=== PATIENT | female | born 1985 | race Caucasian/White ===

== ENCOUNTER 2019-05-31 07:12 | Outpatient (CLI) | payer BC, SELFPAY ==
--- NOTE | 2019-05-31 14:19 | PFTS_ITS ---
Date of Study:05/31/19 Date of Dictation: 05/31/19 MECHANICS: Forced vital capacity (FVC) is normal. Forced expiratory volume in one second (FEV1) is normal. FEV1/FVC is normal. FLOW VOLUME LOOP: Normal. LUNG VOLUMES: Total lung capacity (TLC) is normal. Residual volume (RV) is mildly elevated. DIFFUSING CAPACITY FOR CARBON MONOXIDE: Normal. INTERPRETATION: The pulmonary function tests are normal. There is no significant postbronchodilator response. Lung volumes are normal with minimally elevated residual volume. Gas exchange (DLCO) is normal. MTDD
== END 2019-05-31 07:13 | disposition home or self-care (01) ==
PROVIDERS: Family Provider Family Medicine; PCP Family Medicine; Visit Provider Internal Medicine Critical Care Medicine
DX: D86.9 Sarcoidosis, unspecified (principal)
CPT/HCPCS: 94060; 94726; 94729; J7611

== ENCOUNTER 2019-06-22 15:41 | Outpatient (RCR) | payer BC, SELFPAY | END 2019-07-13 23:59 | disposition home or self-care (01) | LOC: SPT 15:41 | PROVIDERS: Family Provider Family Medicine; PCP Family Medicine; Referring Provider Neurological Surgery; Visit Provider Neurological Surgery | DX: M54.12 Radiculopathy, cervical region (principal) | CPT/HCPCS: 97110; 97161 ==

== ENCOUNTER 2019-07-14 06:00 | Outpatient (RCR) | payer BC, SELFPAY | END 2019-08-12 23:59 | disposition home or self-care (01) | LOC: SPT 06:00 | PROVIDERS: Family Provider Family Medicine; PCP Family Medicine; Referring Provider Neurological Surgery; Visit Provider Neurological Surgery | DX: M54.12 Radiculopathy, cervical region (principal) | CPT/HCPCS: 97110 ==

== ENCOUNTER 2019-08-13 06:00 | Outpatient (RCR) | payer BC, SELFPAY | END 2019-09-12 23:59 | disposition home or self-care (01) | LOC: SPT 06:00 | PROVIDERS: PCP Family Medicine; Referring Provider Neurological Surgery; Visit Provider Neurological Surgery | DX: M54.12 Radiculopathy, cervical region (principal) | CPT/HCPCS: 97110 ==

== ENCOUNTER 2019-10-18 12:01 | Outpatient (CLI) | payer BC, SELFPAY ==
--- NOTE | 2019-10-18 12:13 | XRR_ITS ---
PROCEDURE INFORMATION: Exam: XR Chest, 2 Views Exam date and time: 10/18/2019 12:38 PM Age: 34 years old Clinical indication: Condition or disease; Lung condition and disease; Other: Sarcoidosis TECHNIQUE: Imaging protocol: XR of the chest Views: 2 views. COMPARISON: CT chest w con* [id number] 02/26/2019 9:59 AM FINDINGS: Lungs: Hyperinflation and interstitial prominence. Pleural space: No pleural effusion. Heart/Mediastinum: No cardiomegaly. Bones/joints: Marginal osteophytes. XR/XR chest 2V* [id number] IMPRESSION: Hyperinflation and interstitial prominence.
== END 2019-10-18 12:02 | disposition home or self-care (01) ==
LOC: RAD 12:06
PROVIDERS: PCP Family Medicine; Visit Provider Internal Medicine Critical Care Medicine
DX: D86.9 Sarcoidosis, unspecified (principal)
CPT/HCPCS: 71046

== ENCOUNTER 2020-05-01 12:48 | Outpatient (CLI) | payer BC, SELFPAY ==
--- NOTE | 2020-05-01 12:59 | XRR_ITS ---
PROCEDURE INFORMATION: Exam: XR Chest, 2 Views Exam date and time: 05/01/2020 12:59 PM Age: 35 years old Clinical indication: Chest pain; Type not specified; Patient HX: Sarcoidosis TECHNIQUE: Imaging protocol: XR of the chest Views: 2 views. COMPARISON: CR XR chest 2V* [id number] 10/18/2019 12:36 PM FINDINGS: Lungs: Unremarkable. No consolidation. Pleural space: Unremarkable. No pleural effusion. No pneumothorax. Heart/Mediastinum: Unremarkable. No cardiomegaly. Bones/joints: Metallic surgical hardware seen in the cervical spine XR/XR chest 2V* [id number] IMPRESSION: 1. No acute findings. 2. Metallic surgical hardware cervical spine.
== END 2020-05-01 12:49 | disposition home or self-care (01) ==
PROVIDERS: PCP Family Medicine; Visit Provider Internal Medicine Critical Care Medicine
DX: R07.9 Chest pain, unspecified (principal)
CPT/HCPCS: 71046

== ENCOUNTER → 2020-05-04 16:45 | Outpatient (BNVA) | payer BC, SELFPAY | PROVIDERS: PCP Family Medicine; Visit Provider Internal Medicine Critical Care Medicine | DX: Z20.822 Contact with and (suspected) exposure to COVID-19 (principal) | CPT/HCPCS: 87635 ==

== ENCOUNTER 2020-05-08 07:05 | Outpatient (CLI) | payer BC, SELFPAY ==
--- NOTE | 2020-05-08 09:03 | PFTS_ITS ---
Date of Study:05/08/20 Date of Dictation: MECHANICS: Forced vital capacity (FVC) is . Forced expiratory volume in one second (FEV1) is . FEV1/FVC is . FLOW VOLUME LOOP: . LUNG VOLUMES: Total lung capacity (TLC) is . Residual volume (RV) is . DIFFUSING CAPACITY FOR CARBON MONOXIDE: . INTERPRETATION: The pulmonary function tests are . mechanics and lung volumes. Gas exchange (DLCO) is . MTDD
== END 2020-05-08 07:06 | disposition home or self-care (01) ==
LOC: RT 07:12
PROVIDERS: PCP Family Medicine; Visit Provider Internal Medicine Critical Care Medicine
DX: D86.9 Sarcoidosis, unspecified (principal)
CPT/HCPCS: J7611

== ENCOUNTER → 2020-05-11 16:28 | Outpatient (BNVA) | payer BC, SELFPAY | PROVIDERS: PCP Family Medicine; Visit Provider Internal Medicine Critical Care Medicine | DX: Z20.822 Contact with and (suspected) exposure to COVID-19 (principal) | CPT/HCPCS: 87635 ==

== ENCOUNTER 2020-05-15 06:55 | Outpatient (CLI) | payer BC, SELFPAY ==
--- NOTE | 2020-05-15 09:53 | PFTS_ITS ---
Date of Study:05/15/20 Date of Dictation: 05/15/2020 MECHANICS: Forced vital capacity (FVC) is normal. Forced expiratory volume in one second (FEV1) is reduced 70%. FEV1/FVC is reduced. FLOW VOLUME LOOP: Normal . LUNG VOLUMES: Not measured DIFFUSING CAPACITY FOR CARBON MONOXIDE: . INTERPRETATION: The spirometry suggestive of mild airway obstruction. Normal gas transfer. Please correlate clinically. MTDD
== END 2020-05-15 06:56 | disposition home or self-care (01) ==
LOC: RT 06:59
PROVIDERS: PCP Family Medicine; Visit Provider Internal Medicine Critical Care Medicine
DX: D86.9 Sarcoidosis, unspecified (principal)
CPT/HCPCS: 94010; 94729

== ENCOUNTER → 2021-04-06 11:13 | Outpatient (BNVA) | payer BC, SELFPAY | PROVIDERS: PCP Family Medicine; Visit Provider Family Medicine | DX: M79.672 Pain in left foot (principal); M79.89 Other specified soft tissue disorders | CPT/HCPCS: 73630 ==

== ENCOUNTER → 2021-04-11 14:59 | Outpatient (BNVA) | payer BC, SELFPAY | PROVIDERS: PCP Family Medicine; Visit Provider Podiatrist Foot & Ankle Surgery | DX: M79.672 Pain in left foot (principal) | CPT/HCPCS: 73630 ==

== ENCOUNTER 2021-04-11 15:47 | Outpatient (CLI) | payer BC, SELFPAY | END 2021-04-11 15:48 | disposition home or self-care (01) | LOC: SPT 15:48 | PROVIDERS: PCP Family Medicine; Visit Provider Podiatrist Foot & Ankle Surgery | DX: Z46.89 Encounter for fitting and adjustment of other specified devices (principal); M79.672 Pain in left foot | CPT/HCPCS: 97760; L4361 ==

== ENCOUNTER 2021-07-02 06:00 | Outpatient (RCR) | payer BC, SELFPAY | END 2021-07-12 23:59 | disposition home or self-care (01) | LOC: SPT 06:00 | PROVIDERS: PCP Family Medicine; Referring Provider Physician Assistant Medical; Visit Provider Physician Assistant Medical | DX: M54.2 Cervicalgia (principal) | CPT/HCPCS: 97110; 97140; 97161; G0283 ==

== ENCOUNTER 2021-07-13 06:00 | Outpatient (RCR) | payer BC, SELFPAY | END 2021-08-06 12:12 | disposition home or self-care (01) | LOC: SPT 06:00 | PROVIDERS: PCP Family Medicine; Referring Provider Physician Assistant Medical; Visit Provider Physician Assistant Medical | DX: M54.2 Cervicalgia (principal) | CPT/HCPCS: 97110; 97140; G0283 ==

== ENCOUNTER → 2021-08-21 08:30 | Outpatient (BNVA) | payer BC, SELFPAY | PROVIDERS: PCP Family Medicine; Visit Provider Podiatrist Foot & Ankle Surgery | DX: M79.672 Pain in left foot (principal) | CPT/HCPCS: 73630 ==

== ENCOUNTER 2021-10-01 06:56 | Outpatient (CLI) | payer BC, SELFPAY ==
--- NOTE | 2021-10-01 07:15 | MR_ITS ---
WS: [id number] MRI LEFT FOOT without CONTRAST. COMPARISON: Radiograph 08/21/2021 Multiplanar, multisequence imaging is performed without contrast. No marrow edema or fractures are identified. Increased T2 signal in the dorsal portion of the Lisfran c ligament. There is increased T2 signal extending from the lateral margin of the first cuneiform to the medial margin of the second metatarsal. There is also increased T2 signal within the remaining in tact dorsal ligament. This is consistent with a partial tear. The plantar surface of the ligament is intact. There is no widening between the first and second metatarsals. There is additional soft tissu e injury in the midfoot. There is edema surrounding the proximal metatarsals and between the cuneifor ms. MR/MR foot LT wo con* [id number] IMPRESSION: 1. Partial tear involving the dorsal surface of the Lisfranc ligament. The justin ntar portion of the ligament is intact. 2. Additional soft tissue injury with edema surrounding the cuneiforms and the proximal metatarsals but no fracture identified.
== END 2021-10-01 06:57 | disposition home or self-care (01) ==
LOC: RAD 06:57
PROVIDERS: PCP Family Medicine; Visit Provider Podiatrist Foot & Ankle Surgery
DX: S90.32XA Contusion of left foot, initial encounter (principal); M79.672 Pain in left foot; X58.XXXA Exposure to other specified factors, initial encounter
CPT/HCPCS: 73718

== ENCOUNTER → 2021-11-29 14:17 | Outpatient (BNVA) | payer BC, SELFPAY | PROVIDERS: PCP Family Medicine; Visit Provider Podiatrist Foot & Ankle Surgery | DX: M79.672 Pain in left foot (principal) | CPT/HCPCS: 73630 ==

== ENCOUNTER 2022-02-22 13:50 | Emergency (ER) | payer BC, SELFPAY ==
[2022-02-22 13:53] VITALS: BP 127/84; PULSE 121; RESP 20; TEMP 36.4; O2SAT 99; BMI 30.7
--- NOTE | 2022-02-22 13:57 | ECG_ITS ---
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 Measurements Intervals [place] Rate: 107 P: 55 ID: [id number] QRS: 56 QRSD: 76 T: 50 QT: 303 QTc: 405 Interpretive Statements SINUS TACHYCARDIA ABNORMAL RHYTHM ECG Compared to ECG 10/12/2015 10:54:43 Indeterminate axis no longer present Electronically Signed On 02-23-2022 14:56:12 INSTRUCTIONAL DESIGNER by Tara Johnson M.D. [id number]
[2022-02-22 18:09] LABS: Basophils % 0.1 %; Eosinophils # 0.2 10^3/uL (0.0-0.8); Eosinophils % 1.4 %; Hematocrit 40.7 % (37.0-47.0); Hemoglobin 13.5 g/dL (11.5-15.3); Lymphocytes # 1.3 10^3/uL (0.8-4.8); Lymphocytes % 9.1 %; Mean Corpuscular HGB Conc 33.2 g/dL (30.0-36.0); Mean Corpuscular Hemoglobin 28.3 pg (28.0-34.0); Mean Corpuscular Volume 85.3 fl (81-99); Mean Platelet Volume 9.6 fL (7.4-10.4); Monocytes # 0.7 10^3/uL (0.2-0.9); Monocytes % 4.6 %; Neutrophils # 11.83 10^3/uL (1.8-7.7); Neutrophils % 84.3 %; Nucleated Red Blood Cells % 0 %; Platelet Count 331 10^3/cmm (130-400); Red Blood Count 4.77 10^6/uL (4.1-5.3); Red Cell Distribution Width 13.6 % (12.1-15.1)
[2022-02-22 18:47] LABS: Alanine Aminotransferase 18 U/L (0-33); Albumin Level 4.6 g/dL (3.5-5.2); Alkaline Phosphatase 116 U/L (35-105); Anion Gap 15.7 (5-19); Aspartate Amino Transferase 15 U/L (0-32); Blood Urea Nitrogen 9 mg/dL (6-20); Calcium 9.5 mg/dL (8.5-10.5); Carbon Dioxide 24 mmol/L (22-29); Chloride 100 mmol/L (98-107); Globulin 3.8 g/dL (1.3-4.6); Glomerular Filtration Rate 95.8 mL/min (90-130); Glucose 99 mg/dL (65-115); Osmolality Calculated 281 mOsm/kg (285-295); Potassium 3.7 mmol/L (3.5-5.1); Sodium 136 mmol/L (136-145); Thyroid Stimulating Hormone 1.46 uIU/mL (0.27-4.20); Total Bilirubin 0.6 mg/dL (0.15-1.2); Total Protein 8.4 g/dL (6.6-8.7)
[2022-02-22 19:26] LABS: HCG Qualitative Urine. Negative (Negative)
[2022-02-22 20:06] LABS: D Dimer 0.76 ug/mIFEU (0-0.59)
--- NOTE | 2022-02-22 20:15 | CTR_ITS ---
PROCEDURE INFORMATION: Exam: CTA Chest With Contrast Exam date and time: 02/22/2022 8:24 PM Age: 36 years old Clinical indication: Pain; Chest pressure; Additional info: Chest pain TECHNIQUE: Imaging protocol: Computed tomographic angiography of the chest with contrast. 3D rendering (Not supervised by radiologist): MIP and/or 3D reconstructed images were created by the technologist. Radiation optimization: All CT scans at this facility use at least one of these dose optimization techniques: automated exposure control; mA and/or kV adjustment per patient size (includes targeted exams where dose is matched to clinical indication); or iterative reconstruction. Contrast material: OMNIPAQUE 350; Contrast volume: 100 ml; Contrast route: INTRAVENOUS (IV); COMPARISON: CT chest w con* [id number] 02/26/2019 9:59 AM RADIATION DOSE METRICS: Total DLP (mGy-cm): 391.59 FINDINGS: Pulmonary arteries: Normal. No pulmonary emboli. Aorta: Unremarkable. No aortic aneurysm. No aortic dissection. Lungs: Bilateral dependent atelectasis. Right lower lobe demonstrates a cluster of pulmonary nodules measuring up to 8.3 mm medially. Left lower lobe 5.4 mm nodule is also seen. Pleural spaces: Unremarkable. No pneumothorax. No pleural effusion. Heart: Unremarkable. No cardiomegaly. No pericardial effusion. Lymph nodes: Unremarkable. No enlarged lymph nodes. Bones/joints: Unremarkable. No acute fracture. Soft tissues: Unremarkable. CT/CT angio chest PE protcl [id number] IMPRESSION: 1. Negative for pulmonary embolus. 2. Bilateral dependent atelectasis. 3. Right lower lobe demonstrates a cluster of pulmonary nodules measuring up to 8.3 mm medially. Left lower lobe 5.4 mm nodule is also seen. Highly suspicious nodule(s). Consider non-emergent PET/CT, or tissue sampling.(Reference: Rober) REFERENCES: Rober Hogue, et al. Guidelines for Management of Incidental Pulmonary Nodules Detected on CT Images: From the Fleischner Society 2017. Radiology. 2017;284(1):228-243.
--- NOTE | 2022-02-22 20:15 | ED_ITS ---
HPI - General Adult General: Chief complaint: General Medical Stated complaint: abnormal heartrate Time Seen by Provider: 02/22/22 19:40 Source: patient History of Present Illness: 36-year-old female presenting with mild chest discomfort, palpitations, and shortness of breath. She has had the symptoms for a few days. She was diagnosed with strep throat last week, and has been on antibiotics for this. She denies fever currently. She does feel ill otherwise. She notes that her throat has improved to some degree. Onset (ago): day(s) Location: chest Radiation: non-radiation Quality: other (pressure) Pain Consistency: constant Relieving factors: none Exacerbating factors: other Associated symptoms: Reports chest pain, cough, dyspnea, fevers/chills, headache(s), nausea, palpitations, short of breath and weakness (Generalized); Deny confusion, diaphoresis or vomiting Review of Systems Const: Denies: diaphoresis ENMT: Denies: throat pain Card: Reports: chest pain and palpitations Resp: Reports: dyspnea and non-productive cough GI: Reports: nausea; Denies: vomiting Musc: Denies: back pain Neuro: Reports: headache(s); Denies: confusion PFSH ED PFSH: Medical History Ankle arthritis LA (lymphadenopathy) Sarcoidosis Surgical History H/O tubal ligation History of bronchoscopy Family History Denies family history of Diabetes CAD (coronary artery disease) Hyperlipidemia Chronic kidney disease (CKD) Anesthesia complication Family history of premature coronary artery disease Lung disease Cancer Hypertension Stroke Social History Smoking and tobacco status: former smoker Second hand smoke exposure: No Smoking risk assessment/counseling performed?: No Alcohol intake: never Desire information about alcohol rehabilitation?: No Counseling given: No Desire information about substance/drug rehabilitation?: No Counseling given: No Lives independently: Yes Household members: spouse Marital status: Number of children: 2 Current occupational status: employed History of recent travel: No Current gender identity: Female Female Reproductive History: Para: 2 Physical Exam Const: GENERAL APPEARANCE: cooperative and ill appearing (Mildly); not frail appearing HENMT: COMMON NORMALS: normocephalic, atraumatic and Normal external nose p resent HEAD & SCALP: normocephalic and atraumatic FACE & SINUS: normal facial exam and face symmetric NOSE: Normal external nose present Eye: COMMON NORMALS: Equal, round and reactive pupils present and EOMs intact bilaterally PUPIL: Yes Equal, round and reactive pupils present Neck/C-Spine: GENERAL: Yes trachea midline Chest: CHEST: Yes Symmetrical chest wall rise Resp: COMMON NORMALS: normal respiratory effort, No retractions, No use of accessory muscles and clear to auscultation bilaterally AUSCULTATION: clear to auscultation bilaterally Cardio: COMMON NORMALS: regular rate and regular rhythm RATE: regular rate and tachycardic RHYTHM: regular rhythm GI: COMMON NORMALS: Normal to inspection, nondistended, normoactive bowel sounds present Extremity: COMMON NORMALS: no pedal edema Neuro: KADEN COMA SCALE: document GCS findings [place] coma scale eye opening: Spontaneous [place] coma scale verbal response: Orientated [place] coma scale motor response: Obey commands [place] coma scale total score: 15 SENSORY EXAM: Yes extremities (intact) Psych: COMMON NORMALS: speech normal SPEECH: Yes normal speech Skin: COMMON NORMALS: no rashes or lesions noted GENERAL SKIN EXAM: no r ashes or lesions noted Course Vital Signs: Vital signs: Vital Signs Temperature 98.4 F 02/22/22 22:23 Pulse Rate 105 H 02/22/22 22:23 Respiratory Rate 14 02/22/22 22:23 Blood Pressure 106/82 02/22/22 22:23 Pulse Oximetry 97 02/22/22 22:23 Oxygen Delivery Fl thod 02/22/22 21:00 [facility] - General Adult Medical Decision Making This patient is tachycardic 1 30-1 40, sinus, on initial presentation. EKG shows a sinus tachycardia with normal intervals and axis. No ST changes. White blood cell count is 14. Other laboratory is not remarkable, save a slightly elevated D-dimer of 0.8. Chest x-ray was negative. CTA performed due to elevation in D-dimer shows no pulmonary embolus. There is a cluster of pulmonary nodules likely from history of sarcoidosis. There is some dependent atelectasis. She received a 2 L bolus and 2.5 mg of IV metoprolol with improvement in her heart rate down to 100. She feels much improved, and looks clinically much better. Later, PCR panel turned positive for influenza A which is likely the cause of her acute illness. She will continue some metoprolol, and hydration, and has an appointment with her PCP on Friday at which point hopefully she can discontinue her metoprolol Lab Data : 02/22/22 17:48 02/22/22 17:48 Radiology Impressions Chest CTA 02/22/22 20:15 IMPRESSION: 1. Negative for pulmonary embolus. 2. Bilateral dependent atelectasis. 3. Right lower lobe demonstrates a cluster of pulmonary nodules measuring up to 8.3 mm medially. Left lower lobe 5.4 mm nodule is also seen. Highly suspicious nodule(s). Consider non-emergent PET/CT, or tissue sampling.(Reference: Rober) REFERENCES: Rober Hogue, et al. Guidelines for Management of Incidental Pulmonary Nodules Detected on CT Images: From the Fleischner Society 2017. Radiology. 2017;284(1):228-243. Laboratory Results WBC 14.0 10^3/uL (4.0-10.0) H 02/22/22 17:48 RBC 4.77 10^6/uL (4.1-5.3) 02/22/22 17:48 Hgb 13.5 g/dL (11.5-15.3) 02/22/22 17:48 Hct 40.7 % (37.0-47.0) 02/22/22 17:48 MCV 85.3 fl (81-99) 02/22/22 17:48 MCH 28.3 pg (28.0-34.0) 02/22/22 17:48 MCHC 33.2 g/dL (30.0-36.0) 02/22/22 17:48 RDW 13.6 % (12.1-15.1) 02/22/22 17:48 Plt Count 331 10^3/cmm (130-400) 02/22/22 17:48 MPV 9.6 fL (7.4-10.4) 02/22/22 17:48 Neut % (Auto) 84.3 % 02/22/22 17:48 Lymph % (Auto) 9.1 % 02/22/22 17:48 Hooker % (Auto) 4.6 % 02/22/22 17:48 Eos % (Auto) 1.4 % 02/22/22 17:48 Baso % (Auto) 0.1 % 02/22/22 17:48 Neut # (Auto) 11.83 10^3/uL (1.8-7.7) H 02/22/22 17:48 Lymph # (Auto) 1.3 10^3/uL (0.8-4.8) 02/22/22 17:48 Hooker # (Auto) 0.7 10^3/uL (0.2-0.9) 02/22/22 17:48 Eos # (Auto) 0.2 10^3/uL (0.0-0.8) 02/22/22 17:48 Baso # (Auto) 0.0 10^3/uL (0.0-0.1) 02/22/22 17:48 Nucleated RBC % (auto) 0 % 02/22/22 17:48 Nucleated RBCs # 0.0 /100WBC 02/22/22 17:48 D-Dimer 0.76 ug/mIFEU (0-0.59) H 02/22/22 17:48 Sodium 136 mmol/L (136-145) 02/22/22 17:48 Potassium 3.7 mmol/L (3.5-5.1) 02/22/22 17:48 Chloride 100 mmol/L (98-107) 02/22/22 17:48 Carbon Dioxide 24 mmol/L (22-29) 02/22/22 17:48 Anion Gap 15.7 (5-19) 02/22/22 17:48 BUN 9 mg/dL (6-20) 02/22/22 17:48 Creatinine 0.7 mg/dL (0.5-0.9) 02/22/22 17:48 GFR Calculation 95.8 mL/min (90-130) 02/22/22 17:48 Glucose 99 mg/dL (65-115) 02/22/22 17:48 Calculated Osmolality 281 mOsm/kg (285-295) L 02/22/22 17:48 Calcium 9.5 mg/dL (8.5-10.5) 02/22/22 17:48 Magnesium 2.0 mg/dL (1.7-2.3) 02/22/22 17:48 Total Bilirubin 0.6 mg/dL (0.15-1.2) 02/22/22 17:48 AST 15 U/L (0-32) 02/22/22 17:48 ALT 18 U/L (0-33) 02/22/22 17:48 Alkaline Phosphatase 116 U/L (35-105) H 02/22/22 17:48 Troponin T Gen 5 ng/L 6 ng/L (0-10) 02/22/22 17:48 Total Protein 8.4 g/dL (6.6-8.7) 02/22/22 17:48 Albumin 4.6 g/dL (3.5-5.2) 02/22/22 17:48 Globulin 3.8 g/dL (1.3-4.6) 02/22/22 17:48 TSH 1.46 uIU/mL (0.27-4.20) 02/22/22 17:48 HCG, Qual Negative (Negative) 02/22/22 19:13 Urine Color Yellow (Yellow) 02/22/22 19:13 Urine Appearance Clear (CLEAR) 02/22/22 19:13 Urine pH 7 (5-7) 02/22/22 19:13 Ur Specific Winfred 1.000 (1.005-1.030) L 02/22/22 19:13 Urine Protein Neg (Negative) 02/22/22 19:13 Urine Glucose (UA) Norm (Normal) 02/22/22 19:13 Urine Ketones Negative (Negative) 02/22/22 19:13 Urine Blood Neg (Negative) 02/22/22 19:13 Urine Nitrate Negative (Negative) 02/22/22 19:13 Urine Bilirubin Neg (Negative) 02/22/22 19:13 Urine Urobilinogen Norm mg/dL (Negative) 02/22/22 19:13 Ur Leukocyte Esterase Negative (Negative) 02/22/22 19:13 Nasal Influ A H1 2008 PCR Detected (NOT DETECT) A 02/22/22 22:15 Urine Opiates Screen Negative ng/mL (Negative) 02/22/22 19:13 Ur Barbiturates Screen Negative ng/mL (Negative) 02/22/22 19:13 Ur Phencyclidine Scrn Negative ng/mL (Negative) 02/22/22 19:13 Ur Amphetamines Screen Negative ng/mL (Negative) 02/22/22 19:13 U Benzodiazepines Scrn Negative ng/mL (Negative) 02/22/22 19:13 Urine Cocaine Screen Negative ng/mL (Negative) 02/22/22 19:13 U Marijuana (THC) Screen Negative ng/mL (Negative) 02/22/22 19:13 Adenovirus (PCR) Not detected (NOT DETECT) 02/22/22 22:15 C. pneumoniae DNA (PCR) Not detected (NOT DETECT) 02/22/22 22:15 Coronavirus 229E (PCR) Not detected (NOT DETECT) 02/22/22 22:15 Human Metapneumovir PCR Not detected (NOT DETECT) 02/22/22 22:15 Influenza A (H1) PCR Not detected (NOT DETECT) 02/22/22 22:15 Influenza A (H3) PCR Not detected (NOT DETECT) 02/22/22 22:15 Influenza Type A (PCR) Detected (NOT DETECT) A 02/22/22 22:15 Influenza Type B (PCR) Not detected (NOT DETECT) 02/22/22 22:15 M. pneumoniae (PCR) Not detected (NOT DETECT) 02/22/22 22:15 Parainfluenza 1 (PCR) Not detected (NOT DETECT) 02/22/22 22:15 Parainfluenza 2 (PCR) Not detected (NOT DETECT) 02/22/22 22:15 Parainfluenza 3 (PCR) Not detected (NOT DETECT) 02/22/22 22:15 Parainfluenza 4 (PCR) Not detected (NOT DETECT) 02/22/22 22:15 RSV Type A (PCR) Not detected (NOT DETECT) 02/22/22 22:15 RSV Type B (PCR) Not detected (NOT DETECT) 02/22/22 22:15 Entero/Rhino (PCR) Not detected (NOT DETECT) 02/22/22 22:15 SARS-CoV-2 (PCR) Not detected (NOT DETECT) 02/22/22 22:15 Discharge Plan Discharge Patient Disposition: Home Clinical Impression: Tachycardia Condition: Stable Prescriptions: New metoprolol tartrate 25 mg tablet 12.5 mg PO BID Qty: 60 0RF Discharge Orders: Discharge ED (Routine); Ordered 02/22/22 Ordered By: Kavon Denney Referrals: Armaan Cary MD [Primary Care Provider] - 1-3 days Patient Instructions: Tachycardia (ED) Activity Restrictions/Additional Instructions: Drink plenty of liquids for the next 48 hours. Call tomorrow for the results of your viral swabs. See your doctor on Friday as planned. Return for any worsening symptoms despite treatment. Medication as directed. Coding Level of Care Code ED Driver'S Education Instructor for Aurora Segovia
[2022-02-22 20:20] LABS: Add Urine Microscopic? NO; Charge for UA Resulting for Rev
[2022-02-22] MEDS: iohexol 350 mg/mL 500 mL Btl (per mL) IV (20:27)
[2022-02-22 20:29] LABS: Bilirubin Urine Neg (Negative); Blood Urine Neg (Negative); Glucose Urine UA Norm (Normal); Ketones Urine Negative (Negative); Leukocyte Esterase Urine Negative (Negative); Nitrate Urine Negative (Negative); Protein Urine Neg (Negative); Urine Appearance Clear (CLEAR); Urine Color Yellow (Yellow); Urobilinogen Urine Norm (Negative); pH Urine 7 (5-7)
[2022-02-22 20:30] LABS: Troponin T (5th) Once 6 ng/L (0-10)
[2022-02-22] MEDS: sodium chloride 0.9% 1,000 ML 999 ML IV ×2 (20:30→21:30)
[2022-02-22] MEDS: metoprolol tartrate 1 mg/1 mL SDV 5 mL 2.5 MG IVP (20:30)
[2022-02-22 20:31] LABS: Amphetamines Screen Urine Negative (Negative); Barbiturates Screen Urine Negative (Negative); Benzodiazepines Screen Urine Negative (Negative); Cocaine Screen Urine Negative (Negative); Opiate Screen Urine Negative (Negative); PCP Screen Urine Negative (Negative); THC Screen Urine Negative (Negative)
[2022-02-22] MEDS: ondansetron 2 mg/ML SDV 2 mL 4 MG PO (20:36)
[2022-02-22 20:41] VITALS: BP 120/71; PULSE 120; RESP 20; O2SAT 100
[2022-02-22 21:00] VITALS: BP 110/68; PULSE 96; RESP 18; O2SAT 100
[2022-02-22] MEDS: metoprolol tartrate 25 mg Tablet PO (22:03)
[2022-02-22 22:23] VITALS: BP 106/82; PULSE 105; RESP 14; TEMP 36.9; O2SAT 97
[2022-02-23 00:26] LABS: Adenovirus Not Detected (NOT DETECT); Chlamydia Pneumoniae Not Detected (NOT DETECT); Coronavirus 229E,HKU1,NL63,OC4 Not Detected (NOT DETECT); Human Metapneumovirus Not Detected (NOT DETECT); Human Rhinovirus/Enterovirus Not Detected (NOT DETECT); Influenza A Detected (NOT DETECT); Influenza A H1 Not Detected (NOT DETECT); Influenza A H1-2009 Detected (NOT DETECT); Influenza A H3 Not Detected (NOT DETECT); Influenza B Not Detected (NOT DETECT); Mycoplasma Pneumoniae Not Detected (NOT DETECT); Parainfluenza Virus Type 1 Not Detected (NOT DETECT); Parainfluenza Virus Type 2 Not Detected (NOT DETECT); Parainfluenza Virus Type 3 Not Detected (NOT DETECT); Parainfluenza Virus Type 4 Not Detected (NOT DETECT); Respiratory Syncytial Virus A Not Detected (NOT DETECT); Respiratory Syncytial Virus B Not Detected (NOT DETECT); SARS-COV-2 Not Detected (NOT DETECT)
== END 2022-02-22 22:20 | disposition home or self-care (01) ==
PROVIDERS: Emergency Medicine; Emergency Provider Emergency Medicine; PCP Family Medicine
DX: R00.0 Tachycardia, unspecified (principal); Z20.822 Contact with and (suspected) exposure to COVID-19; Z87.891 Personal history of nicotine dependence
CPT/HCPCS: 36415; 71275; 80053; 80306; 81003; 81025; 83735; 84443; 84484; 85025; 85378; 87486; 87581; 87633; 93005; 96361; 96374; 99285; J2405; J3490; J7030; Q9967

== ENCOUNTER → 2022-03-12 14:55 | Outpatient (BNVA) | payer BC, SELFPAY | PROVIDERS: PCP Family Medicine; Visit Provider Family Medicine | DX: D86.9 Sarcoidosis, unspecified (principal); R00.0 Tachycardia, unspecified | CPT/HCPCS: 80053; 85025; 86140 ==

== ENCOUNTER → 2022-04-01 08:27 | Outpatient (BNVA) | payer BC, SELFPAY | PROVIDERS: PCP Family Medicine; Visit Provider Podiatrist Foot & Ankle Surgery | DX: M77.42 Metatarsalgia, left foot (principal); L92.0 Granuloma annulare; M79.672 Pain in left foot | CPT/HCPCS: 73630 ==

== ENCOUNTER 2022-06-13 13:40 | Outpatient (CLI) | payer BC, SELFPAY ==
[2022-06-13 14:06] VITALS: PULSE 93; RESP 18; O2SAT 100
[2022-06-13] MEDS: albuterol 2.5 mg/3 mL Neb INHALATION (14:06)
[2022-06-13 14:11] VITALS: PULSE 91
[2022-06-14 15:55] LABS: Alternaria Alternata (M6) Ige <0.10 kU/L; Alternaria Class 0; Bermuda Class 0; Bermuda Grass (G2) Ige <0.10 kU/L; Cat Dander (E1) Ige <0.10 kU/L; Cat Dander Class 0; Common Ragweed (Short) (W1) Ig <0.10 kU/L; D. Farinae Class 0; Dermatophagoides Class 0/1; Dermatophagoides Farinae (D2) <0.10 kU/L; Dermatophagoides Pteronyssinus 0.12 kU/L; Dog Dander (E5) Ige <0.10 kU/L; Dog Dander Class 0; Elm (T8) Ige <0.10 kU/L; Elm Class 0; English Plantain (W9) Ige <0.10 kU/L; English Plantain Class 0; House Dust (Greer) (H1) Ige <0.10 kU/L; House Dust (Hollister- Stier) <0.10 kU/L; House Dust Class 0; Immunoglobulin E 13 kU/L (<OR=114); Johnson Grass (G10) Ige <0.10 kU/L; Johnson Grass Cl 0; June Grass Class 0; June Grass(Kentucky Blue) (G8) <0.10 kU/L; Lamb'S Quarters (Goose Foot) <0.10 kU/L; Lamb'S Quarters Class 0; Maple (Box Elder) (T1) Ige <0.10 kU/L; Maple Class 0; Meadow Fescue (G4) Ige <0.10 kU/L; Meadow Fescue Class 0; Mucor Racemosus Class 0; Oak (T7) Ige <0.10 kU/L; Oak Class 0; Orchard Grass (Cocksfoot) (G3) <0.10 kU/L; Penicillium Class 0; Penicillium Notatum (M1) Ige <0.10 kU/L; Perennial Rye Grass (G5) Ige <0.10 kU/L; Perennial Rye Grass Class 0; Ragweeed Class 0; Rough Marsh Elder (W16) Ige <0.10 kU/L; Rough Marsh Elder Class 0; Sweet Vernal Class 0; Sweet Vernal Grass (G1) Ige <0.10 kU/L; Timothy Grass (G6) Ige <0.10 kU/L; Timothy Grass Class 0
[2022-06-18 21:09] LABS: Aspergillus Fumigatus, Igg Ab, 68.5 mg/L (<=102)
== END 2022-06-13 13:41 | disposition home or self-care (01) ==
PROVIDERS: PCP Family Medicine; Visit Provider Internal Medicine Pulmonary Disease
DX: R06.02 Shortness of breath (principal); D86.9 Sarcoidosis, unspecified
CPT/HCPCS: 36415; 82785; 86003; 94060; 94726; 94729; J7613

== ENCOUNTER 2022-07-15 13:43 | Outpatient (CLI) | payer BC, SELFPAY ==
--- NOTE | 2022-07-15 13:44 | XRR_ITS ---
PROCEDURE INFORMATION: Exam: XR Sacrum and Coccyx, 2 or More Views Exam date and time: 07/15/2022 2:14 PM Age: 37 years old Clinical indication: Pain in coccyx area; Patient HX: Sacral / coccyx pain x 2 months-no injury TECHNIQUE: Imaging protocol: XR of the sacrum and coccyx, 2 or more views. COMPARISON: No relevant prior studies available. FINDINGS: Bones/joints: Normal. No acute fracture or deformity. Sacroiliac joints preserved. Soft tissues: Normal. XR/XR sacrum coccyx min 2V [id number] IMPRESSION: No acute findings.
== END 2022-07-15 13:44 | disposition home or self-care (01) ==
PROVIDERS: PCP Family Medicine; Visit Provider Family Medicine
DX: M53.3 Sacrococcygeal disorders, not elsewhere classified (principal)
CPT/HCPCS: 72220

== ENCOUNTER 2022-09-18 15:11 | Outpatient (CLI) | payer BC, SELFPAY ==
--- NOTE | 2022-09-18 15:15 | USCV_ITS ---
Madeleine Aggarwal Age: 37 Gender: F : 1985 Exam Date: 09/18/2022 15:52 Ordering Phys: Tal Harris MD Technologist: Aye Colon [place] [facility] [place]: Sarcoidosis with worsening symptoms BP: / HR: 70 Rhythm: Sinus Technical Quality: Adequate MEASUREMENTS (Male / Female) Normal Values 2D ECHO LV Diastolic Diameter PLAX 4.0 cm 4.2 - 5.9 / 3.9 - 5.3 cm LV Systolic Diameter PLAX 2.6 cm LV Chamber Size 3.3 cm IVS Diastolic Thickness 0.9 cm 0.6 - 1.0 / 0.6 - 0.9 cm IVS Systolic Thickness 1.5 cm LVPW Diastolic Thickness 1.2 cm 0.6 - 1.0 / 0.6 - 0.9 cm LVPW Systolic Thickness 1.4 cm RV Chamber Size 2.1 cm LVOT Diameter 2.1 cm LV Ejection Fraction 2D Teich 65.6 % LV Ejection Fraction MOD 2C 62.6 % LV Ejection Fraction 2C AL 67.8 % LA Diameter 3.2 cm LA Width 2.3 cm LA Height 2.9 cm RA Width 2.6 cm RA Height 3.2 cm Aorta at Sinotubular Diameter 2.8 cm IVC Diameter 1.5 cm M-MODE Aortic Annulus Diameter 3.4 cm LA Ao Ratio MM 1.0 MV E Point Septal Separation 0.6 cm DOPPLER AV Peak Velocity 103.0 cm/s LVOT Peak Velocity 92.0 cm/s AV Area Cont Eq vti 2.6 cm squared AV Area Cont Eq pk 3.0 cm squared MV Area PHT 3.3 cm squared Mitral E to A Ratio 1.5 MV E' Velocity 49.0 cm/s Mitral E to MV E' Ratio 5.4 Mitral E to LV E' Lateral Ratio 4.8 Mitral E to LV E' Septal Ratio 6.1 TR Peak Velocity 170.8 cm/s TR Peak Gradient 11.7 mmHg TR Mean Velocity 131.2 cm/s TR Mean Gradient 7.4 mmHg TR Velocity Time Integral 47.6 cm TV Peak E Velocity 84.0 cm/s Right Atrial Pressure 3.0 mmHg Pulmonary Artery Systolic Pressu 14.7 mmHg RV Acceleration Time 0.2 s RV Ejection Time 0.4 s RV AcT/ET 0.5 FINDINGS Left Ventricle Left ventricle is normal in size. LV systolic function is normal with EF 55 to 60%. No regional wall motion normalities are seen. Diastolic function is normal Right Ventricle Normal in size and function Right Atrium Normal in size Left Atrium Normal in size Mitral Valve Structurally normal mitral valve. No significant stenosis or regurgitation. Aortic Valve Structurally normal aortic valve. No significant stenosis or regurgitation is seen. Tricuspid Valve Trace tricuspid regurgitation. Pulmonary artery systolic pressure is normal. Pulmonic Valve Not well-visualized Pericardium Normal Aorta Normal in size IVC Appears to be normal CONCLUSIONS LV systolic function is normal with EF 55 to 60%. Diastolic function is normal. Trace tricuspid regurgitation No comparison studies are available Oswaldo Coelho MD (Electronically Signed) Final Date: 21 September 2022 16:10 S
== END 2022-09-18 15:12 | disposition home or self-care (01) ==
LOC: RAD 15:13
PROVIDERS: PCP Family Medicine; Visit Provider Internal Medicine Pulmonary Disease
DX: R06.09 Other forms of dyspnea (principal); D86.9 Sarcoidosis, unspecified
CPT/HCPCS: 93306

== ENCOUNTER → 2022-10-07 12:24 | Outpatient (BNVA) | payer BC, SELFPAY | PROVIDERS: PCP Family Medicine; Visit Provider Internal Medicine | DX: R07.9 Chest pain, unspecified (principal) | CPT/HCPCS: 93005 ==

== ENCOUNTER 2023-01-06 14:43 | Outpatient (CLI) | payer BC, SELFPAY ==
--- NOTE | 2023-01-06 15:00 | CT_ITS ---
WS: [id number] CT CHEST CT-HIGH RESOLUTION, NONCONTRAST. HISTORY: Interstitial lung disease. Technique: High-resolution chest CT is performed in inspiration, expiration, supine and prone positio brayan. All CT scans at [facility] use at least one of these dose optimization techniques: automated exposure control; mA and/or kV adjustment per patient size (includes targeted exams where dose is mat ched to clinical indication); or iterative reconstruction. DLP: 1266.10 mGy.cm COMPARISON: 02/22/2022, 02/26/2019 Findings: Well-expanded lungs. Reidentified are numerous small nodules of similar size in the medial RIGHT lower lobe which have been present since 2017. Some of these are calcified. There is additional small nodule which is calcified in the LEFT lower lobe. No interstitial thickening. There is no bron chiectasis or honeycombing. Normal expiration. There is no mosaic attenuation. Normal prone imaging. No mediastinal or hilar adenopathy. Normal size heart. No pericardial or pleural effusions. Gallbladd er is slightly contracted. No destructive bone lesions. Impression: 1. No evidence for interstitial lung disease. No bronchiectasis or honeycombing. No pulmonary cyst. 2. Small cluster of nodules in the medial RIGHT lower lobe and a single calcified nodule in the LEFT lower lobe. These changes have been present since 02/26/2019 and may be postinfectious in etiology. N o progression. Some of the nodules have resolved.
== END 2023-01-06 14:44 | disposition home or self-care (01) ==
PROVIDERS: PCP Family Medicine; Visit Provider Internal Medicine Pulmonary Disease
DX: D86.9 Sarcoidosis, unspecified (principal)
CPT/HCPCS: 71250

== ENCOUNTER 2023-01-16 12:52 | Outpatient (CLI) | payer BC, SELFPAY ==
[2023-01-16 13:13] VITALS: PULSE 93; RESP 18; O2SAT 98
[2023-01-16 13:17] VITALS: PULSE 114
[2023-01-16] MEDS: albuterol 2.5 mg/3 mL Neb INHALATION (13:17)
== END 2023-01-16 12:53 | disposition home or self-care (01) ==
LOC: RT 12:53
PROVIDERS: PCP Family Medicine; Visit Provider Internal Medicine Pulmonary Disease
DX: R06.02 Shortness of breath (principal)
CPT/HCPCS: 94060; 94618; 94726; 94729; J7613

== ENCOUNTER → 2024-04-27 14:40 | Outpatient (BNVA) | payer BC, SELFPAY | PROVIDERS: PCP Family Medicine; Visit Provider Family Medicine | DX: R59.1 Generalized enlarged lymph nodes (principal); D86.9 Sarcoidosis, unspecified | CPT/HCPCS: 80053; 85025; 86140; 86308 ==

== ENCOUNTER 2024-05-10 15:25 | Outpatient (CLI) | payer BC, SELFPAY ==
--- NOTE | 2024-05-10 15:45 | CT_ITS ---
WS: [id number] CT chest w con* [id number] HISTORY: f/u on sarcoid TECHNIQUE: Axial imaging performed through the thorax. Coronal and sagittal reformats are submitted. All CT scans at [facility] use at least one of these dose optimization techniques: automated exposure control; mA and/or kV adjustment per patient size (includes targeted exams where dose is mat ched to clinical indication); or iterative reconstruction. CONTRAST: Omnipaque 350; 100 mL IV. DLP: 549.69 mGy.cm COMPARISON: 02/26/2019, 02/22/2022, 01/06/2023 Lungs and central airway: Poor lung volumes due to limited inspiration. No new mass or pulmonary nodu le. Partially calcified nodule medial RIGHT lower lobe with a few adjacent stable nodular opacificati ons. There is an additional calcified nodule measuring 5 mm in the LEFT lower lobe. Otherwise lungs a re clear. No pneumonia. Pleura: Normal. No pleural effusion. Heart and pericardium: Normal size heart with no pericardial effusion. Mediastinum and latesha: No mediastinum or hilar adenopathy. Vessels: Normal size aortic and pulmonary artery. No coronary artery calcifications. Chest wall and lower neck: No soft tissue masses. Upper abdomen: Normal. Osseous structures: No destructive process. CT/CT chest w con* [id number] IMPRESSION: 1. No interval change in appearance of the lungs or mediastinum since 3. 2. Partially calcified nodules in the lower lobes. Additional nodular opacific ation in the medial RIGHT lower lobe with long-term stability.
[2024-05-10] MEDS: iohexol 350 mg/mL 500 mL Btl (per mL) IV (15:56)
== END 2024-05-10 15:26 | disposition home or self-care (01) ==
PROVIDERS: PCP Family Medicine; Visit Provider Family Medicine
DX: D86.9 Sarcoidosis, unspecified (principal); J98.4 Other disorders of lung; R91.8 Other nonspecific abnormal finding of lung field
CPT/HCPCS: 71260

== ENCOUNTER 2024-10-11 10:19 | Outpatient (RCR) | payer BC, SELFPAY | END 2024-10-11 23:55 | disposition home or self-care (01) | LOC: SPT 10:19 | PROVIDERS: PCP Family Medicine; Visit Provider Family Medicine | DX: S40.012D Contusion of left shoulder, subsequent encounter (principal); X58.XXXD Exposure to other specified factors, subsequent encounter | CPT/HCPCS: 97161 ==

== ENCOUNTER 2024-10-12 05:00 | Outpatient (RCR) | payer BC, SELFPAY | END 2024-11-11 23:59 | disposition home or self-care (01) | LOC: SPT 05:00 | PROVIDERS: PCP Family Medicine; Visit Provider Family Medicine | DX: S40.012D Contusion of left shoulder, subsequent encounter (principal); X58.XXXD Exposure to other specified factors, subsequent encounter | CPT/HCPCS: 97110 ==

== ENCOUNTER → 2024-10-28 10:26 | Outpatient (BNVA) | payer BC, SELFPAY | PROVIDERS: PCP Family Medicine; Visit Provider Family Medicine | DX: Z00.00 Encounter for general adult medical examination without abnormal findings (principal); Z78.9 Other specified health status | CPT/HCPCS: 80053; 80061; 85025; 86140; 87624 ==